=== PATIENT | female | born 1960 | race Caucasian/White ===

== ENCOUNTER 2020-07-30 08:18 | Emergency (ER) | payer OTHER ==
[~2020-07-30] VITALS: Ht 162.6 cm; Wt 74.8 kg
[~2020-07-30 08:18] MED LIST: ACYC400 PO; AMIT25; ANASTROZOLE; ASCO500; Anastrozole1 GM; BACL10 PO; CELE100 PO; DULO60 PO; EXEM25 PO; GABA300 PO; IBUHYD; LEVSOD100 PO; LEVSOD125; LEVSOD125 PO; LEVSOD150; LEVSOD75 PO; Norco 5-325 Ta1 EACH PO; PARO10 PO; PYRI100; Synthroid125 MCG PO; TRAZ50; VENL37.5 PO; VENL75ER PO; VITAMIN D350000 UNIT PO
[2020-07-30 08:41] LABS: BASOPHILS ABSOLUTE AUTO 0.01 K/mm3 (0.00-0.23); BASOPHILS PERCENT AUTO 0 % (0-2); EOSINOPHILS ABSOLUTE AUTO 0.09 K/mm3 (0.00-0.68); EOSINOPHILS PERCENT AUTO 1 % (0-6); Hematocrit 44.1 % (33.0-51.0); Hemoglobin 14.5 g/dL (11.5-16.0); IMMATURE GRAN ABSOLUTE AUTO 0.04 K/mm3 (0.00-0.10); IMMATURE GRAN PERCENT AUTO 0 % (0-1); LYMPHOCYTES PERCENT AUTO 7 % (21-46); MONOCYTES ABSOLUTE AUTO 0.65 K/mm3 (0.16-1.47); MONOCYTES PERCENT AUTO 6 % (4-13); Mean Corpuscular HGB 29.3 pg (26.0-34.0); Mean Corpuscular HGB Conc 32.9 g/dL (31.5-36.5); Mean Corpuscular Volume 89 fL (80-100); Mean Platelet Volume 9.6 fL (9.1-12.4); NEUTROPHILS ABSOLUTE AUTO 9.46 K/mm3 (1.96-9.15); NEUTROPHILS PERCENT AUTO 86 % (41-73); Platelet Count 308 K/mm3 (150-400); RDW Coefficient Variation 12.7 % (11.7-14.2); RDW Standard Deviation 41.5 fL (35.1-46.3); Red Blood Cell Count 4.95 M/mm3 (3.80-5.20); White Blood Cell Count 11.05 K/mm3 (4.00-11.30)
[2020-07-30 08:53] LABS: Alanine Aminotransfer (ALT/SGP 35 U/L (12-78); Albumin, Blood 4.2 g/dL (3.4-5.0); Alk Phos 103 U/L (50-136); Anion Gap 5 mmol/L (6-16); Aspartate Aminotrans (AST/SGOT 23 U/L (12-37); Bilirubin, Total 0.7 mg/dL (0.1-1.0); Blood Urea Nitrogen 27 mg/dL (8-24); Bun/Creatinine Ratio 28.4 (12.0-20.0); CO2, Blood 27 mmol/L (21-32); Calcium, Blood 9.2 mg/dL (8.5-10.1); Chloride, Blood 106 mmol/L (98-108); Creatinine, Blood 0.95 mg/dL (0.40-1.00); Glomerular Filtration Rate >60 (60-); Glucose, Blood 134 mg/dL (70-99); Potassium, Blood 3.9 mmol/L (3.5-5.5); Sodium, Blood 138 mmol/L (136-145); Total Protein, Blood 8.2 g/dL (6.4-8.2)
[2020-07-30] MEDS ORDERED: LEVSOD100 PO (09:16)
[2020-07-30 10:32] LABS: Source, Urine Clean Catch
[2020-07-30 10:35] LABS: Appearance, Urine Clear (Clear); Bilirubin, Urine Neg (Neg); Blood, Urine 1+ (Neg); Color, Urine Yellow (P-Yellow); Glucose Qualitative, Urine Neg (Neg); Ketones, Urine 2+ (Neg); Leukocyte Esterase, Urine 1+ (Neg); Nitrite, Urine Neg (Neg); Protein, Urine 2+ (Neg); Urobilinogen, Urine NORM (Normal)
[2020-07-30 11:05] LABS: Bacteria Few /hpf; Mucus Light (0-Heavy); Red Blood Cells, Urine 0-2 /hpf (0-2); Squamous Epithelial Cells Few /hpf (Few); White Blood Cells, Urine 0-2 /hpf (0-5)
== END 2020-07-30 13:07 | disposition home or self-care (01) ==
LOC: ER 08:18
PROVIDERS: Emergency Medicine; Physician Assistant
DX: E86.0 Dehydration (principal); Z88.5 Allergy status to narcotic agent; Z91.040 Latex allergy status; Z79.899 Other long term (current) drug therapy; Z87.891 Personal history of nicotine dependence
CPT/HCPCS: 36415; 80053; 81001; 83690; 85025; 87086; 96374; 99284-25; J2405; J7030

== ENCOUNTER 2021-07-23 08:17 | Day surgery (SDC) | payer OTHER ==
[~2021-07-23] VITALS: Ht 162.6 cm; Wt 75.5 kg
[2021-07-23] MEDS ORDERED: PROM12.5S (08:58)
== END 2021-07-23 11:25 | disposition home or self-care (01) ==
LOC: ORSCSDS 08:17
PROVIDERS: Internal Medicine Gastroenterology
PROC: 0DJD8ZZ Inspection of Lower Intestinal Tract, Via Natural or Artificial Opening Endoscopic (ICD-10-PCS; principal; 2021-07-23 09:45)
DX: Z12.11 Encounter for screening for malignant neoplasm of colon (principal); Z86.010 Personal history of colon polyps; K57.30 Diverticulosis of large intestine without perforation or abscess without bleeding; K44.9 Diaphragmatic hernia without obstruction or gangrene
CPT/HCPCS: J2250; J2704; J7120

== ENCOUNTER → 2022-05-29 | Outpatient (CLI) | payer OTHER ==
[~2022-05-29] MED LIST changes: +PROM12.5S
== END | disposition home or self-care (01) ==
LOC: LAB 15:42 → LAB SHORT 15:42
DX: N39.0 Urinary tract infection, site not specified (principal)
CPT/HCPCS: 87077; 87086; 87186

== ENCOUNTER 2025-01-15 07:57 | Day surgery (SDC) | payer OTHER ==
[~2025-01-15] VITALS: Ht 162.6 cm; Wt 70.2 kg
[2025-01-15 10:35] VITALS: BP 123/76
== END 2025-01-15 10:58 | disposition home or self-care (01) ==
LOC: ORSCSDS 07:57
PROVIDERS: Internal Medicine Gastroenterology
PROC: 0DJD8ZZ Inspection of Lower Intestinal Tract, Via Natural or Artificial Opening Endoscopic (ICD-10-PCS; principal; 2025-01-15 09:30)
DX: Z12.11 Encounter for screening for malignant neoplasm of colon (principal); K64.4 Residual hemorrhoidal skin tags; Z86.0101 Personal history of adenomatous and serrated colon polyps
CPT/HCPCS: J2704; J7120